=== PATIENT | male | born 1990 | race Caucasian/White ===

== ENCOUNTER 2018-10-05 15:17 | Emergency (ER) | payer SELFPAY, OTHER ==
[2018-10-05] MEDS: IBUPROFEN 600 MG TAB PO (17:30)
== END 2018-10-05 18:12 | disposition home or self-care (01) ==
LOC: FTE 15:17
DX: M79.601 Pain in right arm (principal)
CPT/HCPCS: 73090; 73090-RT; 73130-RT; 99283-25